=== PATIENT | male | born 1995 | race African-American/Black ===

== ENCOUNTER 2022-03-31 19:36 | Emergency (ER) | payer SELFPAY ==
[~2022-03-31] VITALS: Ht 185.4 cm; Wt 74.8 kg
[2022-03-31 19:50] VITALS: BP 120/70
[2022-03-31] MEDS ORDERED: FLUC100T8 PO (19:56)
== END 2022-03-31 20:13 | disposition home or self-care (01) ==
LOC: ER 19:42
DX: B36.0 Pityriasis versicolor (principal)